=== PATIENT | male | born 1960 | race Caucasian/White ===

== ENCOUNTER 2017-10-08 15:11 | Emergency (ER) | payer OTHER, MEDICAID ==
[2017-10-08 15:26] VITALS: TEMP 97.5
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
[2017-10-08] MEDS ORDERED: Oxycodone/Acetaminophen 5/325 mg Tab PO STA (15:39)
[2017-10-08 15:41] VITALS: BMI 32.8
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
--- NOTE | 2017-10-08 18:19 | RAD ---
PROCEDURE: Left Knee Radiographs. HISTORY: Pain. COMPARISON: None. FINDINGS: BONES: Normal. No fracture. Possible small osteochondroma at the proximal portion of the left tibia. JOINTS: Normal. No osteoarthritis. JOINT EFFUSION: None. OTHER FINDINGS: None. IMPRESSION: No evidence of acute fracture or dislocation.
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
[2017-10-08 19:13] VITALS: BP 132/76; PULSE 86; RESP 18; O2SAT 20
== END 2017-10-08 19:17 | disposition home or self-care (01) ==
LOC: ED 15:11
DX: M25.512 Pain in left shoulder (principal); M25.552 Pain in left hip; S83.92XA Sprain of unspecified site of left knee, initial encounter; V09.9XXA Pedestrian injured in unspecified transport accident, initial encounter; E11.9 Type 2 diabetes mellitus without complications; I10 Essential (primary) hypertension; Z79.84 Long term (current) use of oral hypoglycemic drugs